=== PATIENT | female | born 1950 | race Caucasian/White ===

== ENCOUNTER 2024-02-28 09:57 | Inpatient (IN) | payer MEDICARE ==
[~2024-02-28] VITALS: Ht 170.2 cm; Wt 55.8 kg
[~2024-02-28 09:57] MED LIST: AMOCLA500 PO; DOCU100 PO; MELA3 PO; MIRALAX17 GM PO; SACC250C PO; [UNRECOGNIZED DRUG - OTHER]; [UNRECOGNIZED DRUG - OTHER]
[2024-02-28] MEDS ORDERED: Ondansetron HCl 2 MG / ML 2ML Vial IV ONE (10:50)
[2024-02-28 10:59] LABS: BASOPHILS ABSOLUTE AUTO 0.05 K/mm3 (0.00-0.23); BASOPHILS PERCENT AUTO 0 % (0-2); EOSINOPHILS ABSOLUTE AUTO 0.01 K/mm3 (0.00-0.68); EOSINOPHILS PERCENT AUTO 0 % (0-6); Hematocrit 37.6 % (33.0-51.0); Hemoglobin 13.1 g/dL (11.5-16.0); IMMATURE GRAN ABSOLUTE AUTO 0.07 K/mm3 (0.00-0.10); IMMATURE GRAN PERCENT AUTO 0 % (0-1); LYMPHOCYTES ABSOLUTE AUTO 1.67 K/mm3 (0.84-5.20); LYMPHOCYTES PERCENT AUTO 9 % (21-46); MONOCYTES ABSOLUTE AUTO 1.13 K/mm3 (0.16-1.47); MONOCYTES PERCENT AUTO 6 % (4-13); Mean Corpuscular HGB 31.1 pg (26.0-34.0); Mean Corpuscular HGB Conc 34.8 g/dL (31.5-36.5); Mean Corpuscular Volume 89 fL (80-100); Mean Platelet Volume 9.6 fL (9.1-12.4); NEUTROPHILS ABSOLUTE AUTO 15.58 K/mm3 (1.96-9.15); NEUTROPHILS PERCENT AUTO 84 % (41-73); Platelet Count 339 K/mm3 (150-400); RDW Coefficient Variation 13.3 % (11.7-14.2); RDW Standard Deviation 43.8 fL (35.1-46.3); Red Blood Cell Count 4.21 M/mm3 (3.80-5.20); White Blood Cell Count 18.51 K/mm3 (4.00-11.30)
[2024-02-28 11:20] LABS: Albumin, Blood 3.5 g/dL (3.4-5.0); Albumin/Globulin Ratio 0.9 (0.8-1.8); Bilirubin, Total 0.9 mg/dL (0.1-1.0); Bun/Creatinine Ratio 23.1 (12.0-20.0); Calcium, Blood 9.9 mg/dL (8.5-10.1); Creatinine, Blood 0.56 mg/dL (0.40-1.00); Globulin, Blood 3.8 g/dL (2.2-4.0); Potassium, Blood 4.1 mmol/L (3.5-5.5); Total Protein, Blood 7.3 g/dL (6.4-8.2)
[2024-02-28 15:19] LABS: Source, Urine Clean Catch
[2024-02-28 15:22] LABS: Appearance, Urine Clear (Clear); Bilirubin, Urine Neg (Neg); Blood, Urine 1+ (Neg); Color, Urine Yellow (P-Yellow); Glucose Qualitative, Urine Neg (Neg); Ketones, Urine 4+ (Neg); Leukocyte Esterase, Urine Neg (Neg); Nitrite, Urine Neg (Neg); Protein, Urine 2+ (Neg); Specific Gravity, Urine 1.015 (1.003-1.022); Urobilinogen, Urine NORM (Normal)
[2024-02-28 15:32] LABS: Bacteria Rare /hpf; Squamous Epithelial Cells Few /hpf (Few); White Blood Cells, Urine 0-2 /hpf (0-5)
[2024-02-28] MEDS ORDERED: Ciprofloxacin 400MG/D5 200ML 200 ML IV ONE (16:35)
[2024-02-28] MEDS ORDERED: MetroNIDAZOLE 500MG/NS 100 ml 100 ML IV ONE (16:35)
[2024-02-28] MEDS ORDERED: Ketorolac Tromethamine 30mg Vial IV ONE (16:40)
[2024-02-28] MEDS ORDERED: HYDROmorphone HCl/Pf 1MG SYR IV ONE (16:40)
[2024-02-28] MEDS ORDERED: NS 1,000 ML IV SCH ×2 (16:40→17:40)
[2024-02-28] MEDS ORDERED: Ondansetron HCl 2 MG / ML 2ML Vial IV PRN (17:40)
[2024-02-28] MEDS ORDERED: OxyCODONE HCL 5 MG TAB PO PRN (17:40)
[2024-02-28] MEDS ORDERED: FentaNYL Citrate 50 MCG/ML 2 ML Injection IV PRN (17:40)
[2024-02-28 20:04] VITALS: BP 138/73
[2024-02-29] MEDS ORDERED: MetroNIDAZOLE 500MG/NS 100 ml 100 ML IV SCH
[2024-02-29 03:32] VITALS: BP 112/62
--- NOTE | 2024-02-29 04:44 | NUR ---
SHIFT SUMMARY 73 YR F ADMITTED ON 02/28/24. FULL CODE. PT WAS ACTIVELY VOMITING UPON ARRIVAL TO MED UNIT. SHE WAS GIVEN ZOFRAN PER EMAR WITH GOOD RESULTS. SHE C/O SEVERE ABDOMINAL PAIN AND WAS GIVEN DILAUDID FOR RELEIF W/ GOOD RESULTS. SHE STATES SHE HAS ALONG HX OF DIVERTICULITS. SHE C/O INSOMNIA BUT DID NOT WANT TO TAKE ANY ORAL MEDICATION FOR FEAR OF VOMITING IT UP. SHE IS A&O X 4 AND WILL CALL FOR SBA TO BATHROOM.
[2024-02-29 06:09] LABS: Hematocrit 33.7 % (33.0-51.0); Hemoglobin 11.6 g/dL (11.5-16.0); Mean Corpuscular HGB 31.5 pg (26.0-34.0); Mean Corpuscular HGB Conc 34.4 g/dL (31.5-36.5); Mean Corpuscular Volume 92 fL (80-100); Mean Platelet Volume 10.2 fL (9.1-12.4); Platelet Count 312 K/mm3 (150-400); RDW Coefficient Variation 13.3 % (11.7-14.2); RDW Standard Deviation 45.4 fL (35.1-46.3); Red Blood Cell Count 3.68 M/mm3 (3.80-5.20); White Blood Cell Count 11.95 K/mm3 (4.00-11.30)
[2024-02-29 06:25] LABS: International Normalized Ratio 0.95; Prothrombin Time Results 10.2 Sec (9.7-11.5)
[2024-02-29 06:47] LABS: Albumin/Globulin Ratio 0.9 (0.8-1.8); Bilirubin, Total 0.7 mg/dL (0.1-1.0); Bun/Creatinine Ratio 22.3 (12.0-20.0); Calcium, Blood 9.3 mg/dL (8.5-10.1); Creatinine, Blood 0.54 mg/dL (0.40-1.00); Globulin, Blood 3.4 g/dL (2.2-4.0); Magnesium, Blood 1.7 mg/dL (1.6-2.4); Potassium, Blood 3.9 mmol/L (3.5-5.5); Total Protein, Blood 6.4 g/dL (6.4-8.2)
[2024-02-29 07:15] VITALS: BP 159/86
[2024-02-29] MEDS ORDERED: HYDROmorphone HCl/Pf 1MG SYR IV ONE (07:50)
[2024-02-29] MEDS ORDERED: Ondansetron HCl 2 MG / ML 2ML Vial IV PRN (07:55)
[2024-02-29] MEDS ORDERED: Ciprofloxacin 400MG/D5 200ML 200 ML IV SCH (09:00)
[2024-02-29] MEDS ORDERED: Enoxaparin 40 MG/0.4 ML SYR SC SCH (09:00)
[2024-02-29] MEDS ORDERED: Prochlorperazine Edisylate 10 mg Vial IV ONE (09:15)
[2024-02-29] MEDS ORDERED: HyDROXyzine HCl 25 MG Tab PO ONE (10:00)
[2024-02-29 11:44] VITALS: BP 127/74
[2024-02-29 13:15] LABS: Carcinoembryonic Antigen 1.1 ng/mL (0.0-3.0)
[2024-02-29 13:22] LABS: Cancer Antigen 125 115.2 U/mL (1.5-35.0)
[2024-02-29] MEDS ORDERED: NS 1,000 ML IV SCH (14:15)
[2024-02-29 16:35] VITALS: BP 103/57
--- NOTE | 2024-02-29 17:34 | NUR ---
END OF SHIFT SUMMARY PT IS A&OX4. STARTED THE DAY IN QUITE A BIT OF PAIN 9/10, ALONG WITH NAUSEA. ENDING THE DAY WITH BETTER PAIN MANAGEMENT WITH EMAR MEDS, 0/10. PT IS IN NO PT IS IN NO RESPIRATORY DISTRESS ON ROOM AIR. UP TO BSC/BRP INDEPENDENTLY. AWAITING STOOL SAMPLE.
[2024-02-29 19:36] VITALS: BP 102/54
[2024-02-29] MEDS ORDERED: Lactobacil 2-S.Thermo-Bifido 1 1 Cap PO SCH (21:00)
[2024-03-01 02:22] VITALS: BP 99/81
--- NOTE | 2024-03-01 02:24 | NUR ---
HOSPITALIST CONTACTED. PATIENT REQUESTING ICE AND WATER. PATIENT IS CURRENTLY NPO. HOSPITALIST DE. RAY CALLED AND NOTIFIED OF PATIENTS REQUEST. DR. RAY ORDERED FOR CHIPS AND SIPS OKAY WITH NPO.
--- NOTE | 2024-03-01 02:50 | NUR ---
THIS RN SPOKE WITH CHOCO AT DR. JOYCE ANSWERING SERVICE AND PLACED CONSULT.
[2024-03-01 03:20] LABS: Adenovirus F 40/41 Not Detected (NOT DETECT); Astrovirus Not Detected (NOT DETECT); Campylobacter Sp Not Detected (NOT DETECT); Cryptosporidium Not Detected (NOT DETECT); Cyclospora Cayetanensis Not Detected (NOT DETECT); E. Coli O157 Not Detected (NOT DETECT); Entamoeba Histolytica Not Detected (NOT DETECT); Enteroaggregative E. coli-EAEC Not Detected (NOT DETECT); Enteropathogenic E. coli-EPEC Not Detected (NOT DETECT); Enterotoxigenic E. coli-ETEC Not Detected (NOT DETECT); Giardia Lamblia Not Detected (NOT DETECT); Norovirus GI/GII Not Detected (NOT DETECT); Plesiomonas Shigelloides Not Detected (NOT DETECT); Rotavirus A Not Detected (NOT DETECT); Salmonella Sp Not Detected (NOT DETECT); Sapovirus Not Detected (NOT DETECT); Shiga Toxin-prod E. coli-STEC Not Detected (NOT DETECT); Shigella/Enteroin E. coli-EIEC Not Detected (NOT DETECT); Vibrio Cholerae Not Detected (NOT DETECT); Vibrio Sp Not Detected (NOT DETECT); Yersinia Enterocolitica Not Detected (NOT DETECT)
--- NOTE | 2024-03-01 05:14 | NUR ---
SHIFT SUMMARY. PATIENT AOX4. PATIENT IS INDEPENDENT IN ROOM. PATIENT ADMITTED FOR ACUTE DIVERTICULITIS. STOOL SAMPLE COLLECTED THIS SHIFT-RESULTS SHOWED NOTHING DETECTED, PATIENT REMOVED FROM ISOLATION. PATIENT IS IN GOOD SPIRITS. PATIENT C/O PAIN AND NAUSEA THIS SHIFT; MEDICATED WITH 8MG OF ZOFRAN FOR NAUSEA. PATIENT MEDICATED FOR PAIN PER EMAR. PATIENT SATTING >90% ON RA. BED IS LOCKED IN THE LOWEST POSITION WITH CALL LIGHT IN REACH. NO S/S OF DISTRESS NOTED AT THIS TIME. CARE IS ONGOING.
[2024-03-01 05:49] LABS: BASOPHILS ABSOLUTE AUTO 0.05 K/mm3 (0.00-0.23); BASOPHILS PERCENT AUTO 0 % (0-2); EOSINOPHILS PERCENT AUTO 1 % (0-6); Hematocrit 29.3 % (33.0-51.0); Hemoglobin 10.3 g/dL (11.5-16.0); IMMATURE GRAN ABSOLUTE AUTO 0.04 K/mm3 (0.00-0.10); IMMATURE GRAN PERCENT AUTO 0 % (0-1); LYMPHOCYTES ABSOLUTE AUTO 1.82 K/mm3 (0.84-5.20); LYMPHOCYTES PERCENT AUTO 15 % (21-46); MONOCYTES ABSOLUTE AUTO 1.12 K/mm3 (0.16-1.47); MONOCYTES PERCENT AUTO 9 % (4-13); Mean Corpuscular HGB 31.3 pg (26.0-34.0); Mean Corpuscular HGB Conc 35.2 g/dL (31.5-36.5); Mean Corpuscular Volume 89 fL (80-100); Mean Platelet Volume 10.2 fL (9.1-12.4); NEUTROPHILS ABSOLUTE AUTO 9.32 K/mm3 (1.96-9.15); NEUTROPHILS PERCENT AUTO 75 % (41-73); Platelet Count 289 K/mm3 (150-400); RDW Coefficient Variation 13.2 % (11.7-14.2); Red Blood Cell Count 3.29 M/mm3 (3.80-5.20); White Blood Cell Count 12.45 K/mm3 (4.00-11.30)
[2024-03-01 06:22] LABS: Albumin, Blood 2.6 g/dL (3.4-5.0); Albumin/Globulin Ratio 0.9 (0.8-1.8); Bilirubin, Total 0.4 mg/dL (0.1-1.0); Bun/Creatinine Ratio 12.1 (12.0-20.0); Calcium, Blood 8.5 mg/dL (8.5-10.1); Creatinine, Blood 0.5 mg/dL (0.40-1.00); Globulin, Blood 2.8 g/dL (2.2-4.0); Potassium, Blood 3.4 mmol/L (3.5-5.5); Total Protein, Blood 5.4 g/dL (6.4-8.2)
[2024-03-01 07:42] VITALS: BP 134/77
[2024-03-01] MEDS ORDERED: Potassium Phosphate Dibasic 10 MM in Dextrose 5% 250 ML IV STA (08:05)
[2024-03-01] MEDS ORDERED: Potassium Acetate 20 MEQ in NS 100 ML IV ONE (08:10)
--- NOTE | 2024-03-01 09:00 | NUR ---
pt laying in bed awake a/ox4, pleasant and cooperative with care, follows commands well, report heart burn, and some general pain, not feeling good, up to bathroom several times with loose stools, lungs are clear t/o, resp even and unlabored, no cough noted, on r/a, hrr, no edema noted, ppp+2, cap refill < 3 sec, vs stable, afebrile, piv to lfa site is clear and patent, btx4, abd flat soft tender, voids without diff, skin c/w/d/, maew, mariel, call light in reach.
[2024-03-01 15:19] VITALS: BP 141/89
[2024-03-01] MEDS ORDERED: Mag Hydrox/Al Hydrox/Simeth 18 ML,Lidocaine 2% Viscous Soln 9 ML,Atropine/Scopalam/Hyos... PO ONE (15:20)
--- NOTE | 2024-03-01 18:07 | NUR ---
pt was having abd discomfort this am, did medicate her with oxycodone once, she states she's feeling better this evening, she also had a gi cocktail which was helpful for her heart burn, has been to bathroom numerous times today, no further changes this shift. call light in reach.
[2024-03-01 19:09] VITALS: BP 144/76
[2024-03-01] MEDS ORDERED: Peg 400/Hypromellose/Glycerin 15 DROP/ML BTL BOTHEYES PRN (20:25)
[2024-03-01] MEDS ORDERED: NS 250 ML IV PRN (20:25)
--- NOTE | 2024-03-02 01:23 | NUR ---
HOSPITALIST CONTACTED. PATIENT REPORTS EXCESSIVE GAS AND REQUESTS FOR GAS EX. HOSPITALIST DR. RAY CONTACTED AND NOTIFIED OF PATIENTS C/O EXCESSIVE GAS AND ORDERED FOR PATIENT TO RECEIVE GAS EX; SEE ORDERS.
[2024-03-02] MEDS ORDERED: Simethicone 80 MG Chew PO PRN (01:30)
[2024-03-02 04:36] VITALS: BP 120/69
[2024-03-02 05:28] LABS: BASOPHILS ABSOLUTE AUTO 0.09 K/mm3 (0.00-0.23); BASOPHILS PERCENT AUTO 1 % (0-2); EOSINOPHILS ABSOLUTE AUTO 0.14 K/mm3 (0.00-0.68); EOSINOPHILS PERCENT AUTO 2 % (0-6); Hemoglobin 11.5 g/dL (11.5-16.0); IMMATURE GRAN ABSOLUTE AUTO 0.04 K/mm3 (0.00-0.10); IMMATURE GRAN PERCENT AUTO 1 % (0-1); LYMPHOCYTES ABSOLUTE AUTO 2.09 K/mm3 (0.84-5.20); LYMPHOCYTES PERCENT AUTO 28 % (21-46); MONOCYTES ABSOLUTE AUTO 0.86 K/mm3 (0.16-1.47); MONOCYTES PERCENT AUTO 12 % (4-13); Mean Corpuscular HGB 31.1 pg (26.0-34.0); Mean Corpuscular HGB Conc 34.8 g/dL (31.5-36.5); Mean Corpuscular Volume 89 fL (80-100); NEUTROPHILS ABSOLUTE AUTO 4.16 K/mm3 (1.96-9.15); NEUTROPHILS PERCENT AUTO 56 % (41-73); Platelet Count 342 K/mm3 (150-400); RDW Coefficient Variation 13.1 % (11.7-14.2); RDW Standard Deviation 42.7 fL (35.1-46.3); White Blood Cell Count 7.38 K/mm3 (4.00-11.30)
[2024-03-02 06:03] LABS: Albumin, Blood 3.1 g/dL (3.4-5.0); Bilirubin, Total 0.4 mg/dL (0.1-1.0); Bun/Creatinine Ratio 6.8 (12.0-20.0); Creatinine, Blood 0.59 mg/dL (0.40-1.00); Potassium, Blood 3.5 mmol/L (3.5-5.5); Total Protein, Blood 6.1 g/dL (6.4-8.2)
[2024-03-02 07:38] VITALS: BP 120/64
--- NOTE | 2024-03-02 13:09 | NUR ---
NOTE: DR. CONTE IN ROOM AT THIS TIME. PER DR. CONTE START PATIENT ON REGULAR DIET NOW.
[2024-03-02 15:26] VITALS: BP 119/74
--- NOTE | 2024-03-02 15:29 | NUR ---
SHIFT SUMMARY: PATIENT REPORTS NAUSEA BUT NO VOMITING THIS AM, AFTER HAVING CONVERSATIONS c ONE OF THE ATTENDING DR. PATIENT AGREED TO TAKE HER NAUSEA MED. PATIENT REPORTS "NAUSEA MEDS WAS HELPING A LOT, I'M NOT NAUSEATED ANYMORE." PATIENT DENIES NAUSEOUS WHEN ASKED T/O THE DAY. PATIENT ALSO REPORTS MULTIPLE LOOSE, BROWN, BM THIS SHIFT. PATIENT AMBUALTES X3 AROUND THE UNIT, REGULAR DIET PER ORDER, TOLERATING WELL. PATIENT DENIES PAIN, SOB, CP/CHEST PRESSURE AND DIZZINESS. PATIENT HAD SHOWER AND LINEN CHANGED TODAY. PATIENT A/OX4, PLEASANT AND COOPERATIVE c CARE. VITAL SIGNS REVIEWED. PIV TO BILAT FOREARM SALINE LOCKED. CALL LIGHT IN REACH.
--- NOTE | 2024-03-02 15:42 | NUR ---
FINAL NOTE: PATIENT LEFT THE ROOM AT 1541 AND WAS TRANSPORTED VIA GURNEY BY [facility] NAME MARYJO.
[2024-03-02 20:19] VITALS: BP 156/88
[2024-03-02] MEDS ORDERED: Melatonin 5 MG Tablet PO PRN (23:45)
[2024-03-03 03:36] VITALS: BP 115/69
[2024-03-03 04:38] LABS: BASOPHILS ABSOLUTE AUTO 0.09 K/mm3 (0.00-0.23); BASOPHILS PERCENT AUTO 1 % (0-2); EOSINOPHILS ABSOLUTE AUTO 0.19 K/mm3 (0.00-0.68); EOSINOPHILS PERCENT AUTO 3 % (0-6); Hematocrit 34.3 % (33.0-51.0); Hemoglobin 12.1 g/dL (11.5-16.0); IMMATURE GRAN ABSOLUTE AUTO 0.04 K/mm3 (0.00-0.10); IMMATURE GRAN PERCENT AUTO 1 % (0-1); LYMPHOCYTES ABSOLUTE AUTO 2.08 K/mm3 (0.84-5.20); LYMPHOCYTES PERCENT AUTO 32 % (21-46); MONOCYTES ABSOLUTE AUTO 0.83 K/mm3 (0.16-1.47); MONOCYTES PERCENT AUTO 13 % (4-13); Mean Corpuscular HGB Conc 35.3 g/dL (31.5-36.5); Mean Corpuscular Volume 88 fL (80-100); Mean Platelet Volume 9.6 fL (9.1-12.4); NEUTROPHILS ABSOLUTE AUTO 3.24 K/mm3 (1.96-9.15); NEUTROPHILS PERCENT AUTO 50 % (41-73); Platelet Count 366 K/mm3 (150-400); RDW Standard Deviation 41.6 fL (35.1-46.3); White Blood Cell Count 6.47 K/mm3 (4.00-11.30)
[2024-03-03 05:05] LABS: Albumin, Blood 2.9 g/dL (3.4-5.0); Bilirubin, Total 0.4 mg/dL (0.1-1.0); Bun/Creatinine Ratio 9.4 (12.0-20.0); Calcium, Blood 9.1 mg/dL (8.5-10.1); Creatinine, Blood 0.53 mg/dL (0.40-1.00); Potassium, Blood 3.3 mmol/L (3.5-5.5); Total Protein, Blood 5.9 g/dL (6.4-8.2)
--- NOTE | 2024-03-03 05:12 | NUR ---
Patient alert and oriented, anxious, frequently complaining of pain and nausea, requiring PRN medications oxicodone PO and Zofran IV twice each. Patient independently ambulating in room for bathroom and needs. Patient verbally fixated on conspiracy theories, discharge home, redirection required a few times overnight.
[2024-03-03] MEDS ORDERED: Potassium Chl 20MEQ/Water100ML 100 ML IV ONE (06:45)
[2024-03-03 07:14] VITALS: BP 132/92
--- NOTE | 2024-03-03 15:29 | NUR ---
DISCHARGE SUMMARY PATIENT WITH NO ACUTE EVENTS DURING SHIFT. SHE IS ANXIOUS TO GET HOME. PATIENT EDUCATION PACKET PRINTED AND REVIEWED WITH PATIENT. SHE STATES SHE THOUGHT SHE WOULD BE ON AN ANTIBIOTIC, SPRAYING MACHINE OPERATOR OFFERED TO CALL DR OLSON AND PATIENT DECLINED STATING SHE CAN GET IT FROM HER DR AND THAT SHE HAS SOME ANTIBIOTIC AT HOME. SPRAYING MACHINE OPERATOR OFFERED A SECOND TIME TO CALL DR OLSON AND PATIENT DECLINED STATING SHE JUST WANTS TO GO HOME. IVS REMOVED BY SPRAYING MACHINE OPERATOR. DISCHARGE PACKET SIGNED. PATIENT LEFT UNIT AT 1400 IN TRANSPORT CHAIR WITH [facility] AND DRIVING PATIENT HOME VIA PRIVATE VEHICLE.
[2024-03-04 14:19] LABS: CALPROTECTIN,FECAL 40 ug/g (<=49)
== END 2024-03-03 14:05 | disposition home or self-care (01) | DRG 392 ==
LOC: ER 09:57 → MEDS 17:35
PROVIDERS: Family Medicine; Internal Medicine; Nurse Practitioner Acute Care; Student in an Organized Health Care Education/Training Program; ADMIT Internal Medicine
DX: K57.32 Diverticulitis of large intestine without perforation or abscess without bleeding (principal); E87.20 Acidosis, unspecified; E87.29 Other acidosis; E87.1 Hypo-osmolality and hyponatremia; C18.0 Malignant neoplasm of cecum; K52.9 Noninfective gastroenteritis and colitis, unspecified; F31.9 Bipolar disorder, unspecified; E27.9 Disorder of adrenal gland, unspecified; K59.00 Constipation, unspecified; Z88.5 Allergy status to narcotic agent; Z88.8 Allergy status to other drugs, medicaments and biological substances; F41.9 Anxiety disorder, unspecified; Z79.899 Other long term (current) drug therapy
CPT/HCPCS: 36415; 74177; 80053; 81001; 82378; 83690; 83735; 83993; 85025; 85027; 85610; 86304; 87507; 93005; 93010; 96365-59; 96375; 99285-25; A9270; J0744; J0780; J1170; J1650; J1885; J2405; J3010; J3480; J7030; J7050; J7060; Q9967

== ENCOUNTER 2024-05-30 12:32 | Emergency (ER) | payer SELFPAY ==
[~2024-05-30] VITALS: Ht 170.2 cm; Wt 55.3 kg
[2024-05-30 13:18] LABS: BASOPHILS PERCENT AUTO 1 % (0-2); EOSINOPHILS ABSOLUTE AUTO 0.15 K/mm3 (0.00-0.68); EOSINOPHILS PERCENT AUTO 1 % (0-6); Hematocrit 38.4 % (33.0-51.0); Hemoglobin 13.2 g/dL (11.5-16.0); IMMATURE GRAN ABSOLUTE AUTO 0.06 K/mm3 (0.00-0.10); IMMATURE GRAN PERCENT AUTO 0 % (0-1); LYMPHOCYTES ABSOLUTE AUTO 1.86 K/mm3 (0.84-5.20); LYMPHOCYTES PERCENT AUTO 13 % (21-46); MONOCYTES PERCENT AUTO 9 % (4-13); Mean Corpuscular HGB 31.6 pg (26.0-34.0); Mean Corpuscular HGB Conc 34.4 g/dL (31.5-36.5); Mean Corpuscular Volume 92 fL (80-100); Mean Platelet Volume 9.3 fL (9.1-12.4); NEUTROPHILS PERCENT AUTO 76 % (41-73); Platelet Count 291 K/mm3 (150-400); RDW Coefficient Variation 14.3 % (11.7-14.2); RDW Standard Deviation 48.6 fL (35.1-46.3); Red Blood Cell Count 4.18 M/mm3 (3.80-5.20); White Blood Cell Count 13.87 K/mm3 (4.00-11.30)
[2024-05-30 13:37] LABS: Albumin, Blood 3.5 g/dL (3.4-5.0); Bilirubin, Total 0.8 mg/dL (0.1-1.0); Bun/Creatinine Ratio 12.9 (12.0-20.0); Calcium, Blood 9.3 mg/dL (8.5-10.1); Creatinine, Blood 0.62 mg/dL (0.40-1.00); Globulin, Blood 3.5 g/dL (2.2-4.0); Magnesium, Blood 2.1 mg/dL (1.6-2.4); Potassium, Blood 4.2 mmol/L (3.5-5.5)
[2024-05-30] MEDS ORDERED: NS 1,000 ML IV SCH (15:50)
[2024-05-30] MEDS ORDERED: Morphine Sulfate 4 MG/1 ML Injection IV ONE (15:50)
[2024-05-30] MEDS ORDERED: Ondansetron HCl 2 MG / ML 2ML Vial IV ONE (15:50)
[2024-05-30] MEDS ORDERED: Amoxicillin/Clavulanate K 875 MG Tab PO ONE (15:55)
[2024-05-30] MEDS ORDERED: AMOCLA875 PO (16:48)
[2024-05-30] MEDS ORDERED: HYDR1TAB94 PO (16:50)
[2024-05-30] MEDS ORDERED: ONDA4 PO (16:50)
[2024-05-30 17:00] VITALS: BP 122/57
== END 2024-05-30 17:10 | disposition home or self-care (01) ==
LOC: ER 12:32
PROVIDERS: Physician Assistant
DX: K57.32 Diverticulitis of large intestine without perforation or abscess without bleeding (principal); Z88.8 Allergy status to other drugs, medicaments and biological substances; Z88.5 Allergy status to narcotic agent
CPT/HCPCS: 74177; 80053; 83690; 83735; 85025; 96361; 96374-59; 96375; 99284-25; A9270; J2270; J2405; J7030; Q9967